=== PATIENT | male | born 1955 | race African-American/Black ===

== ENCOUNTER 2017-03-03 15:03 | Emergency (ER) | payer MEDICAID ==
[~2017-03-03] VITALS: Ht 180.3 cm; Wt 113.4 kg
[~2017-03-03 15:03] MED LIST: AFRIN15 ML NASAL; ASPIRIN81 M1 PO; BENADRYL25 MG ORAL; FERROUS SULFAT325 MG PO; GLUCOPHAGE500 MG PO; IBUPROFEN600 MG ORAL; LORATADINE10 M1 PO; NORCO 5-325 TA1 EACH ORAL; PHENERGAN/CODE120 ML PO; PREDNISONE20 MG ORAL; RANITIDINE HCL150 MG ORAL; ROBAXIN-750750 MG PO; ZOFRAN4 MG PO
[2017-03-03 15:41] VITALS: BP 145/70
[2017-03-03] MEDS ORDERED: Famotidine 20 MG/ 2ML VIAL IVP ONE (15:45)
[2017-03-03] MEDS ORDERED: Dicyclomine HCl 10mg/5ml oral soln ORAL ONE (15:45)
[2017-03-03] MEDS ORDERED: Lidocaine 2% Visc 15ml soln ORAL ONE (15:45)
[2017-03-03] MEDS ORDERED: Mylanta II UD 30ml ORAL ONE (15:45)
[2017-03-03 16:23] LABS: MEAN CORPUSCULAR HEMOGLOBIN 26.9 PG (27.0-31.0); MEAN CORPUSCULAR HGB CONC 36.2 G/DL (32.0-36.0); MEAN CORPUSCULAR VOLUME 74 FL (80-99); MEAN PLATELET VOLUME 8.6 FL (6.5-10.1); PLATELET COUNT 116 K/UL (150-450); RED CELL DISTRIBUTION WIDTH 18.2 % (11.6-14.8); WHITE BLOOD COUNT 12.3 K/UL (4.8-10.8)
[2017-03-03 16:25] LABS: TROPONIN I < 0.30 ng/mL (<=0.30)
[2017-03-03 16:26] LABS: ALANINE AMINOTRANSFERASE 30 U/L (3-41); ANION GAP 19 (5-15); ASPARTATE AMINO TRANSFERASE 37 U/L (5-40); CALCIUM 9.3 mg/dL (8.6-10.2); CARBON DIOXIDE 20 mEQ/L (20-30); CHLORIDE 97 mEQ/L (98-107); CREATININE 1.1 mg/dL (0.7-1.2); GLOMERULAR FILTRATION RATE > 60 mL/min (>60); HEMOLYSIS 55; LIPASE 44 U/L (< 60); POTASSIUM 4.3 mEQ/L (3.4-4.9); SODIUM 136 mEQ/L (135-145); TOTAL PROTEIN 8.5 g/dL (6.6-8.7)
[2017-03-03 16:30] VITALS: BP 144/84
[2017-03-03 16:36] LABS: CKMB 1.6 ng/mL (< 6.7)
[2017-03-03] MEDS ORDERED: Morphine Sulfate 4mg/ml Inj IVP ONE (17:00)
[2017-03-03 17:15] LABS: BILIRUBIN,DIRECT 0.2 mg/dL (0.1-0.3)
[2017-03-03 17:24] LABS: ANISOCYTOSIS 1+; BAND NEUTROPHILS % (MANUAL) 3 % (0-8); EOSINOPHILS % (MANUAL) 2 % (0-3); LYMPHOCYTES % (MANUAL) 7 % (20-45); NEUTROPHILS % (MANUAL) 84 % (45-75); TOTAL CELLS COUNTED 100
[2017-03-03 17:25] LABS: BASOPHILS % (MANUAL) 0 % (0-2); PLATELET ESTIMATE DECREASED; PLATELET MORPHOLOGY NORMAL; POLYCHROMASIA 1+; TARGET CELLS 1+
[2017-03-03 17:30] VITALS: BP 134/77
--- NOTE | 2017-03-03 17:35 | Emergency Room Report ---
History of Present Illness General Chief Complaint: Nausea, Vomiting, and Diarrhea Source: Patient Present Illness HPI 62-year-old male presents ED for evaluation. States that since yesterday been feeling weak with nausea vomiting and diarrhea. Notes multiple episodes of vomiting and episodes of watery loose stools. Denies any fevers or chills. Denies sick contacts or recent travel. Denies recent antibiotic use. Notes some epigastric pain, dull, 5/10, nonradiating. No other aggravating or relieving factors. Denies any other associated symptom Allergies: Coded Allergies: No Known Allergies (Unverified , 09/20/12) Patient History Past Medical History: DM Past Surgical History: none Pertinent Family History: none Social History: Denies: alcohol use, drug use, smoking Immunizations: UTD Reviewed Nursing Documentation: PMH: Agreed, PSxH: Agreed Nursing Documentation-PMH Past Medical History: No History, Except For Hx Diabetes: Yes Hx Gastrointestinal Problems: Yes - kidney stones Review of Systems All Other Systems: negative except mentioned in HPI Physical Exam Vital Signs Date Time Temp Pulse Resp B/P Pulse Ox O2 Delivery O2 Flow Rate FiO2 03/03/17 15:21 98.2 102 22 145/70 98 Room Air Sp02 EP Interpretation: reviewed, normal General Appearance: no apparent distress, alert, GCS 15, non-toxic Head: normocephalic, atraumatic Eyes: bilateral eye PERRL, bilateral eye normal inspection ENT: hearing grossly normal, normal pharynx, no angioedema, normal voice Neck: full range of motion, supple/symm/no masses Respiratory: chest non-tender, lungs clear, normal breath sounds, speaking full sentences Cardiovascular #1: regular rate, rhythm, no edema Cardiovascular #2: 2+ carotid (R), 2+ carotid (L), 2+ radial (R), 2+ radial (L) , 2+ dorsalis pedis (R), 2+ dorsalis pedis (L) Gastrointestinal: normal bowel sounds, non tender, soft, non-distended, no guarding, no rebound Rectal: deferred Genitourinary: normal inspection, no CVA tenderness Musculoskeletal: back normal, gait/station normal, normal range of motion, non- tender Neurologic: alert, oriented x3, responsive, motor strength/tone normal, sensory intact, speech normal Psychiatric: judgement/insight normal, memory normal, mood/affect normal, no suicidal/homicidal ideation Reflexes: 3+ bicep (R), 3+ bicep (L), 3+ tricep (R), 3+ tricep (L), 3+ knee (R) , 3+ knee (L) Skin: normal color, no rash, warm/dry, well hydrated Lymphatic: no adenopathy Medical Decision Making Diagnostic Impression: Primary Impression: Gastroenteritis ER Course Hospital Course 62-year-old M presents to ED with abdominal pain, vomiting, diarrhea Differential diagnosis includes-appendicitis, cholecystitis, small bowel obstruction, gastritis, Clinical course Patient placed on stretcher. After initial history and physical I ordered labs , IV fluids, Pepcid and Zofran Labs - minimal leukocytosis, electrolytes ok, LFTs normal, UA unremarkable Patient continues to feel pain and states he is vomiting. I ordered morphine I ordered CT of abdomen CT scan shows no acute pathology , enteritis Given improvement in symptoms and lack of acute findings, I believe patient can be safely discharged to home. Patient agrees with plan I feel this is a highly complex case requiring extensive working including EKG/ Rhythm strip, Xray/CT/US, Blood/urine lab work, repeat exams while in ED, and administration of strong opiates/narcotics for pain control, admission to hospital or close patient follow up. Diagnosis - gastroenteritis Stable and discharged to home with Rx Zofran, Bentyl, Zantac. Followup with PMD. Return to ED if symptoms recur or worsen Labs Test 03/03/17 15:55 White Blood Count 12.3 K/UL (4.8-10.8) Red Blood Count 5.20 M/UL (4.70-6.10) Hemoglobin 14.0 G/DL (14.2-18.0) Hematocrit 38.6 % (42.0-52.0) Mean Corpuscular Volume 74 FL (80-99) Mean Corpuscular Hemoglobin 26.9 PG (27.0-31.0) Mean Corpuscular Hemoglobin Concent 36.2 G/DL (32.0-36.0) Red Cell Distribution Width 18.2 % (11.6-14.8) Platelet Count 116 K/UL (150-450) Mean Platelet Volume 8.6 FL (6.5-10.1) Neutrophils (%) (Auto) % (45.0-75.0) Lymphocytes (%) (Auto) % (20.0-45.0) Monocytes (%) (Auto) % (1.0-10.0) Eosinophils (%) (Auto) % (0.0-3.0) Basophils (%) (Auto) % (0.0-2.0) Differential Total Cells Counted 100 Neutrophils % (Manual) 84 % (45-75) Lymphocytes % (Manual) 7 % (20-45) Monocytes % (Manual) 4 % (1-10) Eosinophils % (Manual) 2 % (0-3) Basophils % (Manual) 0 % (0-2) Band Neutrophils 3 % (0-8) Platelet Estimate Decreased Platelet Morphology Normal Polychromasia 1+ Hypochromasia Anisocytosis 1+ Target Cells 1+ Sodium Level 136 mEQ/L (135-145) Potassium Level 4.3 mEQ/L (3.4-4.9) Chloride Level 97 mEQ/L (98-107) Carbon Dioxide Level 20 mEQ/L (20-30) Anion Gap 19 (5-15) Blood Urea Nitrogen 13 mg/dL (7-23) Creatinine 1.1 mg/dL (0.7-1.2) Estimat Glomerular Filtration Rate > 60 mL/min (>60) Glucose Level 255 mg/dL (74-106) Calcium Level 9.3 mg/dL (8.6-10.2) Total Bilirubin 3.0 mg/dL (0.0-1.2) Direct Bilirubin 0.2 mg/dL (0.1-0.3) Aspartate Amino Transf (AST/SGOT) 37 U/L (5-40) Alanine Aminotransferase (ALT/SGPT) 30 U/L (3-41) Alkaline Phosphatase 69 U/L (40-129) Creatine Kinase MB 1.6 ng/mL (< 6.7) Troponin I < 0.30 ng/mL (<=0.30) Total Protein 8.5 g/dL (6.6-8.7) Albumin 4.4 g/dL (3.5-5.2) Globulin 4.1 g/dL Albumin/Globulin Ratio 1.0 (1.0-2.7) Lipase 44 U/L (< 60) CT/MRI/US Diagnostic Results CT/MRI/US Diagnostic Results : Imaging Test Ordered: CT A/P Impression enteritis. no acute process Last Vital Signs Date Time Temp Pulse Resp B/P Pulse Ox O2 Delivery O2 Flow Rate FiO2 03/03/17 15:41 98.2 102 22 145/70 98 Room Air Status: improved Disposition: HOME, SELF-CARE Condition: Stable Scripts Ranitidine Hcl* (ZANTAC*) 150 Mg Tablet 150 MG ORAL TWICE A DAY, #30 TAB Prov: WEI LOW M.D. 03/03/17 Ondansetron Odt* (ZOFRAN ODT*) 4 Mg Tab.rapdis 4 MG ORAL Q6H Y for Nausea & Vomiting, #30 TAB 0 Refills Prov: WEI LOW M.D. 03/03/17 Dicyclomine Hcl* (BENTYL*) 10 Mg Capsule 10 MG ORAL FOUR TIMES A DAY, #20 CAP Prov: WEI LOW M.D. 03/03/17 Referrals: NOT CHOSEN JIMMY/,REFERRING (PCP) WEI LOW M.D. Mar 03, 2017 17:35
[2017-03-03] MEDS ORDERED: RANITIDINE HCL150 MG ORAL (20:29)
[2017-03-03] MEDS ORDERED: ZOFRAN ODT4 MG ORAL (20:29)
[2017-03-03] MEDS ORDERED: BENTYL10 MG ORAL (20:29)
[2017-03-03 20:43] VITALS: BP 124/68
--- NOTE | 2017-03-04 10:09 | Diagnostic Imaging Report ---
Clinical Indication: Abdominal pain Technique: No oral contrast utilized, per emergency room physician request IV administration nonionic contrast. Venous phase spiral acquisition obtained through the abdomen and pelvis. Multiplanar reconstructions were generated. Total dose length product 1091 mGycm. CTDIvol(s) 18 mGy. Dose reduction achieved using automated exposure control Comparison: 12/15/2012 Findings: The appendix is normal. There are a few small sigmoid diverticula. No evidence of diverticulitis. No small bowel distention, but small bowel loops are mildly prominent and fluid-filled. No free or loculated intraperitoneal air or fluid. There is a small fat-containing umbilical hernia. There is questionably a small sliding-type hiatal hernia. Stomach, duodenum are unremarkable. Liver demonstrates diffuse low attenuation, consistent with fatty change. This is progressive since previous study. The gallbladder again demonstrates fundal calcification. The spleen is enlarged, measuring 21 cm long axis dimension. This is similar to previous. The pancreas is unremarkable. There is a mass adjacent to or possibly arising from the right adrenal which measures 2.6 x 1.5 cm diameter, demonstrates nonspecific soft tissue attenuation. Previously this measured 11 mm long axis dimension. There is a second mass contiguous with the posterior right adrenal which measures 18 mm long axis dimension, previously 8 mm. The left adrenal is unremarkable. The left kidney again demonstrates a 8mm lower pole calyceal calculus. There is a 1 cm cyst in the interpolar region of the left kidney and bilateral subcentimeter low-attenuation lesions which are too small to characterize but most likely represent benign simple cysts. No pelvic mass or adenopathy. No retroperitoneal or mesenteric mass or adenopathy. The prostate is prominent. Previously demonstrated bladder wall thickening is no longer evident The heart is borderline enlarged. Equivocal small pericardial effusion persists. The lung bases demonstrate posterior dependent atelectatic changes. There is a small fat Bochdalek hernia again demonstrated. Impression: Equivocally mildly prominent fluid-filled small bowel loops, could indicate mild enteritis changes No acute process otherwise 2 right adrenal or periadrenal masses or nodes, previously described but significantly increased in size since prior study of 12/15/2012. Further workup recommended. This was discussed by phone with Dr. Basilio in the emergency room at the time of interpretation Massive splenomegaly, also previously described Fatty liver, described previously but more prominent currently Early porcelain gallbladder changes, also previously described Nonobstructive 8mm left lower pole renal calculus Left renal cyst. Bilateral subcentimeter low-attenuation renal lesions which are too small to characterize, most likely benign simple cortical cysts. No further followup necessary Borderline cardiomegaly. Diverticulosis. No evidence of diverticulitis Equivocal trace pericardial fluid, also previously reported Posterior dependent atelectatic pulmonary parenchymal changes Small fat-containing Bochdalek hernia on the left. Equivocal small sliding-type hiatal hernia and small fat-containing umbilical hernia Prominent prostate This agrees with the preliminary interpretation provided overnight by Dr. Candelario The CT scanner at [facility] is accredited by the [employer] and the scans are performed using protocols designed to limit radiation exposure to as low as reasonably achievable to attain images of sufficient resolution adequate for diagnostic evaluation.
== END 2017-03-03 20:45 | disposition home or self-care (01) ==
LOC: EMR 16:00
DX: K52.9 Noninfective gastroenteritis and colitis, unspecified (principal); E11.9 Type 2 diabetes mellitus without complications; Z87.442 Personal history of urinary calculi
CPT/HCPCS: 36415; 74177; 80053; 82248; 82553; 83690; 84484; 85007; 85025; 96360; 96361; 96374; 99284; J2270; J2405; Q9967; S0028